=== PATIENT | female | born 1955 | race Caucasian/White ===

== ENCOUNTER 2020-06-25 11:15 | Inpatient (IN) ==
[2020-06-25] MEDS ORDERED: Isovue-370 500 ML BOTTLE IVP ONE (11:55)
[2020-06-25 12:31] LABS: Activated Partial Thrombo Time 30.3 Seconds (26.0-36.0); INR 1.2
[2020-06-25 12:38] LABS: Alanine Aminotransferase 11 Units/L (7-52); Albumin 4.6 g/dL (3.5-5.7); Albumin/Globulin Ratio 1.8 (1.1-2.2); Alkaline Phosphatase 66 Units/L (34-104); Aspartate Amino Transferase 16 Units/L (13-39); BUN/Creatinine Ratio 24 (6-26); Bilirubin,Total 0.9 mg/dL (0.3-1.0); Blood Urea Nitrogen 18 mg/dL (8-23); Calcium 9.5 mg/dL (8.6-10.3); Carbon Dioxide 21 mEq/L (23-29); Chloride 102 mEq/L (98-107); Globulin 2.6 g/dL (2.4-3.5); Glucose 86 mg/dL (70-105); Magnesium 2.1 mg/dL (1.6-2.6); Osmolality,Calculated 285 (280-300); Potassium 4.2 mEq/L (3.5-5.1); Sodium 137 mEq/L (136-145); Total Protein 7.2 g/dL (6.4-8.9); Troponin I < 0.03 ng/mL (< 0.04); eGFR For African Americans > 60 (> 60); eGFR For Non-African Americans > 60 (> 60)
[2020-06-25 13:21] LABS: Basophils % 0.4 %; Eosinophils # 0.1 K/mcL (0.0-0.6); Eosinophils % 0.7 %; Hematocrit 44.2 % (35.3-44.9); Hemoglobin 14.9 g/dL (11.5-15.4); Immature Granulocytes % 0.4 % (0-4); Lymphocytes # 0.8 K/mcL (0.6-4.6); Lymphocytes % 9.4 %; Mean Corpuscular Hemoglobin 31.6 pg (28.0-33.3); Mean Corpuscular Volume 93.8 fL (83.0-100.0); Mean Platelet Volume 10.4 fL (9.4-12.4); Monocytes # 0.6 K/mcL (0.0-1.3); Monocytes % 6.5 %; Platelet Count 213 K/mcL (140-400); Red Blood Count 4.71 M/mcL (3.82-4.97); Red Cell Distribution Width 11.3 % (11.5-14.5); Segmented Neutrophils % 82.6 %; White Blood Count 8.5 K/mcL (4.3-11.1)
[2020-06-25 13:22] LABS: Mean Corpuscular HGB Conc 33.7 g/dL (31.6-35.5)
[2020-06-25] MEDS ORDERED: Naloxone 0.4 MG/ML INJ IVP PRN (14:36)
[2020-06-25] MEDS ORDERED: Perflutren Lipid Microsphere 1.3 ML in 0.9 % Sodium Chloride 8.7 ML IVP PRN (14:56)
[2020-06-25] MEDS ORDERED: Aspirin 325 MG TABLET PO ONE (14:57)
[2020-06-25] MEDS ORDERED: *HR* HYDROcodone/Acet 5/325 mg TABLET PO PRN (14:59)
[2020-06-25] MEDS ORDERED: SUMAtriptan succinate 25 MG TABLET PO PRN (15:06)
[2020-06-25] MEDS ORDERED: Ondansetron 4 MG/2 ML VIAL IVP PRN (15:06)
[2020-06-25] MEDS: *HR* Heparin 5,000 UNIT/ML VIAL SQ SCH (17:37)
[2020-06-25 20:04] LABS: Adenovirus Not Detected (Not Detect); Bordetella Pertussis Not Detected (Not Detect); Chlamydophila pneumoniae Not Detected (Not Detect); Coronavirus 229E Not Detected (Not Detect); Coronavirus HKU1 Not Detected (Not Detect); Coronavirus NL63 Not Detected (Not Detect); Coronavirus OC43 Not Detected (Not Detect); Human Metapneumovirus Not Detected (Not Detect); Human Rhinovirus/Enterovirus Not Detected (Not Detect); Influenza A Subtype 2009 H1 Not Detected (Not Detect); Influenza B Not Detected (Not Detect); Mycoplasma pneumoniae Not Detected (Not Detect); Parainfluenza Virus 1 Not Detected (Not Detect); Parainfluenza Virus 2 Not Detected (Not Detect); Parainfluenza Virus 3 Not Detected (Not Detect); Parainfluenza Virus 4 Not Detected (Not Detect); Respiratory Syncytial Virus Not Detected (Not Detect); SARS-CoV-2 Not Detected (Not Detect)
[2020-06-26 03:59] LABS: Chol/HDL Ratio 7.4 (0-4.9)
[2020-06-26 05:13] LABS: Estimated Average Glucose 108 mg/dl; Hemoglobin A1C 5.4 %
[2020-06-26] MEDS: *HR* Heparin 5,000 UNIT/ML VIAL SQ SCH ×2 (05:34→17:55)
[2020-06-26] MEDS: Aspirin 81 MG TAB.CHEW PO SCH (09:43)
[2020-06-26 10:38] LABS: Red Blood Cell,CSF < 2000 RBC/mcL
[2020-06-26 11:06] LABS: Glucose,CSF 55 mg/dL (40-70); Total Protein,CSF 68 mg/dL (15-45)
[2020-06-26 11:28] LABS: Appearance,CSF Clear (Clear); Basophils,CSF 0 %; Eosinophils,CSF 0 %
[2020-06-26] MEDS ORDERED: methylPREDNISolone 500 MG in 0.9 % Sodium Chloride 50 ML IVPB ONE (11:58)
[2020-06-26] MEDS: methylPREDNISolone 500 MG in 0.9 % Sodium Chloride 50 ML IVPB SCH (13:37)
[2020-06-26] MEDS: Pantoprazole 40 MG VIAL IVP SCH (13:38)
[2020-06-27] MEDS: methylPREDNISolone 500 MG in 0.9 % Sodium Chloride 50 ML IVPB SCH ×2 (00:15→14:45)
[2020-06-27] MEDS: *HR* Heparin 5,000 UNIT/ML VIAL SQ SCH (06:04)
[2020-06-27] MEDS ORDERED: Isovue-370 500 ML BOTTLE IVP ONE ×2 (10:01)
[2020-06-27] MEDS: Pantoprazole 40 MG VIAL IVP SCH (10:40)
[2020-06-27] MEDS: Aspirin 81 MG TAB.CHEW PO SCH (10:41)
[2020-06-27] MEDS ORDERED: 0.9 % Sodium Chloride 1,000 ML IVC SCH (12:00)
[2020-06-27] MEDS ORDERED: *HR* Heparin 5,000 UNIT/ML VIAL IVP PRN ×2 (13:43)
[2020-06-27] MEDS ORDERED: *HR* Heparin 5,000 UNIT/ML VIAL IVP ONE (13:43)
[2020-06-27] MEDS ORDERED: Heparin 25,000UNIT/250ML 1/2NS 25,000 UNIT/250 ML IV.SOLN IVC SCH (13:45)
[2020-06-27 15:04] LABS: Hematocrit 38.7 % (35.3-44.9); Hemoglobin 13.8 g/dL (11.5-15.4); Mean Corpuscular HGB Conc 35.7 g/dL (31.6-35.5); Mean Corpuscular Hemoglobin 31.9 pg (28.0-33.3); Mean Corpuscular Volume 89.6 fL (83.0-100.0); Mean Platelet Volume 10.7 fL (9.4-12.4); Platelet Count 252 K/mcL (140-400); Red Blood Count 4.32 M/mcL (3.82-4.97); Red Cell Distribution Width 11.1 % (11.5-14.5); White Blood Count 7.8 K/mcL (4.3-11.1)
[2020-06-27 15:12] LABS: INR 1.2; Prothrombin Time 13.5 Seconds (9.4-12.1)
[2020-06-27 15:18] LABS: Heparin anti-factor XA UFH 0.08 IU/mL (0.30-0.70)
[2020-06-27 15:19] VITALS: BP 133/71
[2020-06-28 12:10] LABS: CSF Adenosine Deaminase 4 U/L (0-9)
== END 2020-06-27 16:07 | disposition short-term general hospital (02) | DRG 58 ==
LOC: EMEROOARM 11:15 → 3BNU 11:15 → SUATTDRO 14:40 → 3BNU 15:07
PROVIDERS: ADMIT Internal Medicine; ATTEND Internal Medicine

== ENCOUNTER 2020-10-10 14:18 | Inpatient (IN) ==
[2020-10-10 14:48] LABS: Hematocrit 28.4 % (35.3-44.9); Hemoglobin 9.8 g/dL (11.5-15.4); Lymphocytes # 0.1 K/mcL (0.6-4.6); Mean Corpuscular HGB Conc 34.5 g/dL (31.6-35.5); Mean Corpuscular Hemoglobin 35.5 pg (28.0-33.3); Mean Corpuscular Volume 102.9 fL (83.0-100.0); Mean Platelet Volume 9.8 fL (9.4-12.4); Platelet Count 118 K/mcL (140-400); Red Blood Count 2.76 M/mcL (3.82-4.97); Red Cell Distribution Width 15.4 % (11.5-14.5)
[2020-10-10 14:57] LABS: INR 1.8; Prothrombin Time 20.3 Seconds (9.4-12.1)
[2020-10-10 15:10] LABS: Alanine Aminotransferase 24 Units/L (7-52); Albumin 3.2 g/dL (3.5-5.7); Albumin/Globulin Ratio 1.5 (1.1-2.2); Alkaline Phosphatase 47 Units/L (34-104); Aspartate Amino Transferase 11 Units/L (13-39); BUN/Creatinine Ratio 35 (6-26); Bilirubin,Total 0.7 mg/dL (0.3-1.0); Blood Urea Nitrogen 16 mg/dL (8-23); Calcium 8.8 mg/dL (8.6-10.3); Carbon Dioxide 24 mEq/L (23-29); Chloride 95 mEq/L (98-107); Creatine Kinase 14 Units/L (30-223); Globulin 2.1 g/dL (2.4-3.5); Glucose 175 mg/dL (70-105); Osmolality,Calculated 277 (280-300); Potassium 3.8 mEq/L (3.5-5.1); Sodium 131 mEq/L (136-145); Total Protein 5.3 g/dL (6.4-8.9); eGFR For African Americans > 60 (> 60); eGFR For Non-African Americans > 60 (> 60)
[2020-10-10] MEDS ORDERED: 0.9 % Sodium Chloride 1,000 ML IVC ONE ×2 (15:12→15:21)
[2020-10-10 15:18] LABS: Troponin I < 0.03 ng/mL (< 0.04)
[2020-10-10] MEDS ORDERED: Piperacillin/Tazobactam 3.375 GM in 0.9 % Sodium Chloride Mini Bag 100 ML IVPB ONE (15:18)
[2020-10-10 15:21] LABS: ABG Base Excess 1 mEq/L (-2 to 3); ABG HCO3 24 mEq/L (21-27); ABG Oxygen Saturation 96 % (95-98); ABG PCO2 32 mmHg (35-45); ABG PH 7.49 pH Units (7.32-7.45); ABG PO2 77 mmHg (85-104); ABG TCO2 25 mEq/L (20-26)
[2020-10-10 15:56] LABS: Neutrophils # 3.8 K/mcL (1.6-8.9); Platelet Estimate Slight Decrease (Normal)
[2020-10-10 15:57] LABS: Macrocytosis Present (Not Present); Polychromasia 1+ (Not Present)
[2020-10-10] MEDS ORDERED: Ondansetron 4 MG/2 ML VIAL IVP PRN (16:42)
[2020-10-10] MEDS ORDERED: Naloxone 0.4 MG/ML INJ IVP PRN (16:42)
[2020-10-10] MEDS ORDERED: 0.9 % Sodium Chloride 1,000 ML IVC SCH (16:45)
[2020-10-10 18:04] LABS: Adenovirus Not Detected (Not Detect); Bordetella Pertussis Not Detected (Not Detect); Chlamydophila pneumoniae Not Detected (Not Detect); Coronavirus 229E Not Detected (Not Detect); Coronavirus HKU1 Not Detected (Not Detect); Coronavirus NL63 Not Detected (Not Detect); Coronavirus OC43 Not Detected (Not Detect); Human Metapneumovirus Not Detected (Not Detect); Human Rhinovirus/Enterovirus Not Detected (Not Detect); Influenza A Subtype 2009 H1 Not Detected (Not Detect); Influenza B Not Detected (Not Detect); Mycoplasma pneumoniae Not Detected (Not Detect); Parainfluenza Virus 1 Not Detected (Not Detect); Parainfluenza Virus 2 Not Detected (Not Detect); Parainfluenza Virus 3 Not Detected (Not Detect); Parainfluenza Virus 4 Not Detected (Not Detect); Respiratory Syncytial Virus Not Detected (Not Detect); SARS-CoV-2 Not Detected (Not Detect)
[2020-10-10 18:23] LABS: Bacteria,Urine Few per hpf (None-Few); Bilirubin,Urine Negative (Negative); Blood,Urine Negative (Negative); Clarity,Urine Turbid (Clear); Color,Urine Yellow (Yellow); Glucose,Urine (UA) Normal (Normal); Ketones,Urine Negative (Negative); Leukocyte Esterase,Urine Small (Negative); Mucus,Urine Few per lpf (None-Few); Nitrite,Urine Positive (Negative); Protein,Urine Trace mg/dL (Neg-Trace); RBC,Urine 0-3 per hpf (0-3); Specific Gravity,Urine 1.016 (1.010-1.025); Squamous Epithelial Cell,Urine Few per hpf (None-Few); Urobilinogen,Urine Normal (Normal)
[2020-10-10] MEDS: Famotidine 20 MG TABLET PO SCH (21:37)
[2020-10-10] MEDS: Sennosides/Docusate Sodium TABLET PO SCH (21:37)
[2020-10-10] MEDS: Apixaban 5 MG TABLET PO SCH (21:37)
[2020-10-10] MEDS: Piperacillin/Tazobactam 3.375 GM in 0.9 % Sodium Chloride Mini Bag 100 ML IVPB SCH (23:13)
[2020-10-11 03:51] LABS: Hematocrit 24.5 % (35.3-44.9); Hemoglobin 8.4 g/dL (11.5-15.4); Immature Granulocytes % 0.5 % (0-4); Lymphocytes # 0.1 K/mcL (0.6-4.6); Lymphocytes % 1.6 %; Mean Corpuscular HGB Conc 34.3 g/dL (31.6-35.5); Mean Corpuscular Hemoglobin 35.9 pg (28.0-33.3); Mean Corpuscular Volume 104.7 fL (83.0-100.0); Mean Platelet Volume 9.7 fL (9.4-12.4); Monocytes # 0.1 K/mcL (0.0-1.3); Monocytes % 2.2 %; Neutrophils # 3.5 K/mcL (1.6-8.9); Nucleated Red Blood Cells 1.9 /100 WBC (0); Platelet Count 105 K/mcL (140-400); Red Blood Count 2.34 M/mcL (3.82-4.97); Red Cell Distribution Width 15.6 % (11.5-14.5); Segmented Neutrophils % 95.7 %; White Blood Count 3.7 K/mcL (4.3-11.1)
[2020-10-11 04:10] LABS: BUN/Creatinine Ratio 35 (6-26); Blood Urea Nitrogen 12 mg/dL (8-23); Carbon Dioxide 24 mEq/L (23-29); Chloride 103 mEq/L (98-107); Glucose 118 mg/dL (70-105); Osmolality,Calculated 275 (280-300); Sodium 132 mEq/L (136-145); eGFR For African Americans > 60 (> 60); eGFR For Non-African Americans > 60 (> 60)
[2020-10-11 04:21] LABS: Polychromasia 1+ (Not Present); Toxic Granulation Present (Not Present)
[2020-10-11 04:22] LABS: Platelet Estimate Normal (Normal)
[2020-10-11 04:37] LABS: Folate > 22.3 ng/mL (3.0-16.0); Vitamin B12 460 pg/mL (250-1100)
[2020-10-11] MEDS: Piperacillin/Tazobactam 3.375 GM in 0.9 % Sodium Chloride Mini Bag 100 ML IVPB SCH ×2 (08:34→17:04)
[2020-10-11] MEDS: Sennosides/Docusate Sodium TABLET PO SCH ×2 (08:35→22:35)
[2020-10-11] MEDS: Apixaban 5 MG TABLET PO SCH ×2 (08:35→22:35)
[2020-10-11] MEDS: dexAMETHasone 4 MG TABLET PO SCH (08:35)
[2020-10-11] MEDS: Famotidine 20 MG TABLET PO SCH ×2 (08:35→22:35)
[2020-10-11 10:00] LABS: Enterococcus by PCR Not Detected (Not Detect); Staphylococcus aureus by PCR Not Detected (Not Detect); Staphylococcus by PCR Not Detected (Not Detect)
[2020-10-11 10:01] LABS: Acinetobacter baumannii by PCR Not Detected (Not Detect); Candida albicans by PCR Not Detected (Not Detect); Candida glabrata by PCR Not Detected (Not Detect); Candida krusei by PCR Not Detected (Not Detect); Candida parapsilosis by PCR Not Detected (Not Detect); Candida tropicalis by PCR Not Detected (Not Detect); Enterobacter cloacae Cmplx PCR Not Detected (Not Detect); Escherichia coli by PCR Not Detected (Not Detect); Klebsiella oxytoca by PCR Not Detected (Not Detect); Klebsiella pneumoniae by PCR DETECTED (Not Detect); Proteus by PCR Not Detected (Not Detect); Pseudomonas aeruginosa by PCR Not Detected (Not Detect); Serratia marcescens by PCR Not Detected (Not Detect); Streptococcus agalactiae(B)PCR Not Detected (Not Detect); Streptococcus by PCR Not Detected (Not Detect); Streptococcus pneumoniae PCR Not Detected (Not Detect); Streptococcus pyogenes (A) PCR Not Detected (Not Detect)
[2020-10-12] MEDS ORDERED: Piperacillin/Tazobactam 3.375 GM VIAL ONE (00:14)
[2020-10-12] MEDS: Piperacillin/Tazobactam 3.375 GM in 0.9 % Sodium Chloride Mini Bag 100 ML IVPB SCH ×2 (01:14→08:01)
[2020-10-12] MEDS: dexAMETHasone 4 MG TABLET PO SCH (08:02)
[2020-10-12] MEDS: Sennosides/Docusate Sodium TABLET PO SCH (08:02)
[2020-10-12] MEDS: Apixaban 5 MG TABLET PO SCH (08:02)
[2020-10-12] MEDS: Famotidine 20 MG TABLET PO SCH (08:02)
[2020-10-12 09:58] VITALS: BP 98/62; PULSE 66; TEMP 97.6; O2SAT 95
== END 2020-10-12 15:37 | disposition home or self-care (01) | DRG 604 ==
LOC: 3NENU 14:18 → EMEROOARM 14:18 → 3NENU 18:57
PROVIDERS: ADMIT General Practice; ATTEND General Practice